=== PATIENT | female | born 1945 | race African-American/Black ===

== ENCOUNTER 2019-04-03 18:51 | Emergency (ER) | payer MEDICARE ==
--- NOTE | 2019-04-03 19:01 | ED ---
HPI Diabetic - HPI Summary HPI Summary: Pt is a 73 y/o F presenting to the ED brought in by EMS for a diabetic issue. Per EMS, pt was found on the floor of her residence by her daughter, mostly unresponsive. EMS found her semi-responsive and diaphoretic. Initial blood glucose was 32, took some oral glucose that raised it to about 50. 250ml D10 given on scene. BG 132 at time of transport. She states she went to take her insulin and she was at the end of one of her pens so she took the rest and then 5 units of a new pen, so she believes there was more than she thought in the first pen. She denies headache or neck pain. She states shes somewhat hungry and has some chills. Stated she crawled down the stairs as she didnt want to fall. - History Of Current Complaint Time Seen by Provider: 04/03/19 18:55 Hx Obtained From: Patient, EMS Onset/Duration: Sudden Onset, Lasting Hours, Resolved Timing: Hours Severity Initially: Moderate Severity Currently: None Character: Alert Aggravating: Other - accidentally took too much insulin Alleviating: EMS Treatment Associated Signs & Symptoms: Chills Related History: Insulin Requiring - Allergies/Home Medications Allergies/Adverse Reactions: Allergies Allergy/AdvReac Type Severity Reaction Status Date / Time No Known Allergies Allergy Verified 04/03/19 19:00 PMH/Surg Hx/FS Hx/Imm Hx Previously Healthy: Yes Endocrine/Hematology History: Reports: Hx Diabetes Sensory History: Denies: Hx Contacts or Glasses, Hx Deafness Opthamlomology History: Denies: Hx Contacts or Glasses - Cancer History Hx Chemotherapy: No Hx Radiation Therapy: No - Surgical History Surgery Procedure, Year, and Place: BREAST REDUCTION,HYSTERECTOMY - Family History Known Family History: Negative: Respiratory Disease - Social History Alcohol Use: None Hx Substance Use: No Substance Use Type: Reports: None Hx Tobacco Use: No Smoking Status (MU): Never Smoked Tobacco Review of Systems Positive: Chills, Skin Diaphoresis, Other - hungry Negative: Myalgia - neck pain Negative: Headache All Other Systems Reviewed And Are Negative: Yes Physical Exam - Summary Physical Exam Summary: Pt is a 73 y/o F presenting to the ED brought in by EMS for a diabetic issue. Per EMS, pt was found on the floor of her residence by her daughter, mostly unresponsive. EMS found her semi-responsive and diaphoretic. Initial blood glucose was 32, took some oral glucose that raised it to about 50. 250ml D10 given on scene. BG 132 at time of transport. She states she went to take her insulin and she was at the end of one of her pens so she took the rest and then 5 units of a new pen, so she believes there was more than she thought in the first pen. She denies headache or neck pain. She states shes somewhat hungry and has some chills. Stated she crawled down the stairs as she didnt want to fall. Triage Information Reviewed: Yes Vital Signs Reviewed: Yes Diabetic Course/Dx - Course Course Of Treatment: Pt is a 73 y/o F presenting to the ED brought in by EMS for a diabetic issue. EMS found her semi-responsive and diaphoretic. Initial blood glucose was 32, took some oral glucose that raised it to about 50. 250ml D10 given on scene. BG 132 at time of transport. She denies headache or neck pain. She states shes somewhat hungry and has some chills. Pt's physical exam nml. No focal neurological deficits. Pt will be d/c'ed with dx of hypoglycemia and instructed to f/u with PCP. She is stable and agreeable with this plan. - Diagnoses Provider Diagnoses: Hypoglycemia Discharge ED - Sign-Out/Discharge Documenting (check all that apply): Patient Departure - Discharge Plan Condition: Stable Disposition: HOME Patient Education Materials: Hypoglycemia in a Person with Diabetes (ED) Referrals: Diego Pineda MD [Primary Care Provider] - Additional Instructions: Please follow up with your primary care provider on 04/05/19. Return to the emergency department with any new or worsening symptoms. - Billing Disposition and Condition Condition: STABLE Disposition: Home - Attestation Statements Document Initiated by Abrahanibe: Yes Documenting Scribe: Nancy Saul Provider For Whom Khari is Documenting (Include Credential): Enrico Siegel DO. Scribe Attestation: Nancy Montiel scribed for Enrico Siegel DO. on 04/03/19 at 2000. Scribe Documentation Reviewed: Yes Provider Attestation: The documentation as recorded by the Nancy butterfield accurately reflects the service I personally performed and the decisions made by me, Enrico Siegel DO. Status of Scribe Document: Viewed Procedures - Sedation Patient Received Moderate/Deep Sedation with Procedure: No
[2019-04-03 20:04] VITALS: BP 109/60
== END 2019-04-03 20:15 | disposition home or self-care (01) ==
LOC: ED 18:51
DX: E11.649 Type 2 diabetes mellitus with hypoglycemia without coma (principal); Z90.710 Acquired absence of both cervix and uterus; Z79.4 Long term (current) use of insulin
CPT/HCPCS: 99282